=== PATIENT | male | born 1955 | race Caucasian/White ===

== ENCOUNTER 2016-06-23 22:24 | Emergency (ER) | payer BC, OTHER ==
[2016-06-23 22:32] VITALS: BP 108/67; BMI 23.3
--- NOTE | 2016-06-24 00:21 | DR.GENAD ---
HPI - PCP Primary Care Physician: HILLARY - Complaint/Symptoms Chief Complaint Doctors Comments: Agree with statement. Chief Complaint:: PT STATES" ON May I HAD THE FLU MACIEL BEEN ON SEVERAL ROUNDS OF MEDICATIONS. TODAY I HAD A SPELL WHERE I GOT REAL WEAK FEELING AND NAUSEAED I HAVE NOT THROW UP BUT I FEEL SICK. I WAS IN [place] April I STARTED GETTING SICK AFTER RETURNING " - Source History Provided: Patient - Mode of Arrival Mode of Arrival: Ambulatory - Timing Onset of Chief Complaint: 05/14/16 PMH - PMH Past Medical History: Yes Past Medical History: Dyslipidemia Past Surgical History: Yes Surgical History: Tonsillectomy - Family History History of Family Medical Conditions: Yes Family Medical History: Coronary Artery Disease - Social History Do you use any recreational Drugs:: No Lives With: Family Lives Where: Home - infectious screening In the last 2 months have you had wt loss of >10#?: NO Have you had fever, night sweats or hemotysis?: No Have you traveled outside the country in the last 6 months?: No Isolation: Standard ROS - Review of Systems Eyes: No Symptoms Reported ENTM: No Symptoms Reported Respiratoy: No Symptoms Reported Cardiovascular: No Symptoms Reported Gastrointestinal/Abdominal: No Symptoms Reported Genitourinary: No Symptoms Reported Neurological: No Symptoms Reported Musculoskeletal: No Symptoms Reported Integumentary: No Symptoms Reported Hematologic/Lymphatic: No Symptoms Reported Endocrine: No Symptoms Reported Psychiatric: No Symptoms Reported All Other Systems: Reviewed and Negative PE - Vital Signs Vitals: Temperature 102.1 F Pulse Rate 94 Respiratory Rate 20 Blood Pressure 108/67 O2 Sat by Pulse Oximetry 112 - General Limitations: No Limitations General Appearance: Alert, In No Apparent Distress - Head Head Exam: Normal Inspection, Atraumatic - Eyes Eye exam: Normal Appearance, PERRL, EOMI - ENT ENT Exam: Normal Exam External Ear Exam: Normal External Inspection TM/Canal Exam: Bilateral Normal Nose Exam: Normal Nose Exam Mouth Exam: Normal Inspection Throat Exam: Normal Inspection - Neck Neck Exam: Normal Inspection - Chest Chest Inspection: Normal Inspection - Respiratory Respiratory Exam: Normal Lung Sounds Bilat Respiratory Exam: Bilateral Clear to Auscultation - Cardiovascular Cardiovascular Exam: Regular Rate - Abdominal Exam Abdominal Exam: Normal Inspection, Normal Bowel Sounds Abdominal Tenderness: negative: RUQ, RLQ, LUQ, LLQ, Epigastrium, Suprapubic, Diffuse, Mild, Moderate, Severe, Other - Extremities Extremities Exam: Normal Inspection - Back Back Exam: Normal Inspection - Neurologic Neurological Exam: Alert, Oriented X3, CN II-XII Intact - Psychiatric Psychiatric Exam: Normal Affect, Normal Mood - Skin Skin Exam: Warm, Dry, Intact ROR - Labs Reviewed Laboratory Results Reviewed?: Yes Result Diagrams: 06/24/16 00:20 06/24/16 00:20 Laboratory: WBC 13.8 X10^3/uL (3.6-10.0) H 06/24/16 00:20 RBC 4.90 X10^6/uL (4.7-6.0) 06/24/16 00:20 Hgb 13.7 g/dL (13.5-18.0) 06/24/16 00:20 Hct 40.6 % (42.0-54.0) L 06/24/16 00:20 MCV 82.8 fL (80.0-100.0) 06/24/16 00:20 MCH 28.0 pg (27.0-34.0) 06/24/16 00:20 MCHC 33.7 g/dL (33.0-35.0) 06/24/16 00:20 RDW 14.8 % (11.6-16.5) 06/24/16 00:20 Plt Count 130 X10^3/uL (150.0-450.0) L 06/24/16 00:20 Plt Count Comment Adequate (ADEQUATE) 06/24/16 00:20 MPV 7.3 fL (7.4-11.0) L 06/24/16 00:20 Neut % 91.8 % (42.0-75.0) H 06/24/16 00:20 Lymph % 1.6 % (21.0-51.0) L 06/24/16 00:20 [place] % 6.2 % (0.0-13.0) 06/24/16 00:20 Eos % 0.0 % (0.9-2.9) L 06/24/16 00:20 Baso % 0.4 % (0.2-1.0) 06/24/16 00:20 Neut # 12.7 x10^3/uL (2.2-4.8) H 06/24/16 00:20 Lymph # 0.2 X10^3/uL (1.3-2.9) L 06/24/16 00:20 [place] # 0.9 x10^3/uL (0.3-0.8) H 06/24/16 00:20 Eos # 0.0 x10^3/uL (0.0-0.2) 06/24/16 00:20 Baso # 0.1 X10^3/uL (0.0-0.1) 06/24/16 00:20 Absolute Nucleated RBC 0.0 /100WBC 06/24/16 00:20 Total Counted 100 06/24/16 00:20 Neutrophils % (Manual) 82 % (39-76) H 06/24/16 00:20 Band Neutrophils % 10 % (0-10) 06/24/16 00:20 Lymphocytes % (Manual) 2 % (13-43) L 06/24/16 00:20 Monocytes % (Manual) 6 % (4-9) 06/24/16 00:20 Plt Morphology Comment Normal (NORMAL) 06/24/16 00:20 RBC Morphology Normal (NORMAL) 06/24/16 00:20 Sodium 138 mmol/L (136-145) 06/24/16 00:20 Corrected Sodium 138 mmol/L (136-145) 06/24/16 00:20 Potassium 3.0 mmol/L (3.5-5.1) L* 06/24/16 00:20 Chloride 103 mmol/L (98-107) 06/24/16 00:20 Carbon Dioxide 24.0 mmol/L (21-32) 06/24/16 00:20 BUN 18 mg/dL (7-18) 06/24/16 00:20 Creatinine 1.05 mg/dL (0.70-1.30) 06/24/16 00:20 Est GFR (MDRD) Af Amer > 60 (>60) 06/24/16 00:20 Est GFR (MDRD) Non-Af > 60 (>60) 06/24/16 00:20 Glucose 117 mg/dL (65-99) H 06/24/16 00:20 Calcium 8.5 mg/dL (8.5-10.1) 06/24/16 00:20 Corrected Calcium 9.3 mg/dL (8.5-10.1) 06/24/16 00:20 Total Bilirubin 1.20 mg/dL (0.2-1.0) H 06/24/16 00:20 AST 169 Units/L (15-37) H 06/24/16 00:20 ALT 139 Units/L (12-78) H 06/24/16 00:20 Alkaline Phosphatase 90 Units/L (46-116) 06/24/16 00:20 C-Reactive Protein 48.20 mg/L (0-3.0) H 06/24/16 00:20 Total Protein 6.3 g/dL (6.4-8.2) L 06/24/16 00:20 Albumin 3.0 g/dL (3.4-5.0) L 06/24/16 00:20 Globulin 3.3 g/dL (2.5-4.5) 06/24/16 00:20 Albumin/Globulin Ratio 0.9 Ratio (1.1-2.1) L 06/24/16 00:20 Specimen Type Clean catch urine 06/24/16 02:43 Urine Color Yellow (YELLOW) 06/24/16 02:43 Urine Appearance Clear (CLEAR) 06/24/16 02:43 Urine pH 6.0 (5.0 - 8.0) 06/24/16 02:43 Ur Specific [employer] 1.010 (1.000-1.030) 06/24/16 02:43 Urine Protein 1+ (NEGATIVE) 06/24/16 02:43 Urine Glucose (UA) Negative (NEGATIVE) 06/24/16 02:43 Urine Ketones Negative (NEGATIVE) 06/24/16 02:43 Urine Occult Blood 1+ (NEGATIVE) 06/24/16 02:43 Urine Nitrite Negative (NEGATIVE) 06/24/16 02:43 Urine Bilirubin Negative (NEGATIVE) 06/24/16 02:43 Urine Urobilinogen Normal (NORMAL) 06/24/16 02:43 Ur Leukocyte Esterase Negative (NEGATIVE) 06/24/16 02:43 Urine RBC 0-3 /HPF (NEGATIVE) 06/24/16 02:43 Urine WBC 0-3 /HPF (NEGATIVE) 06/24/16 02:43 Ur Squamous Epith Cells Rare /HPF (NEGATIVE) 06/24/16 02:43 Urine Bacteria Negative /HPF (NEGATIVE) 06/24/16 02:43 Ur Culture Indicated? No/not indicated 06/24/16 02:43 - XRAY XRAY Interpreted by: Radiologist (Ct Abd/pel: Parapelvic cyst seen on the right without hydroureteronephrosis. Cardiomegaly, spine degenerative change without destructive osseous lesion. Impression : No acute abnormality to explain patient symptom.) - Diagnosis Discharge Problem: Hypokalemia Fever Qualifiers: Fever type: unspecified Qualified Code(s): R50.9 - Fever, unspecified - Discharge Plan Condition: Stable - Follow ups/Referrals Follow ups/Referrals: NFD,None [Primary Care Provider] - 3 days - Instructions
[2016-06-24 00:42] LABS: BASOPHILS # (AUTO) 0.1 X10^3/uL (0.0-0.1); BASOPHILS % (AUTO) 0.4 % (0.2-1.0); HEMATOCRIT 40.6 % (42.0-54.0); HEMOGLOBIN 13.7 g/dL (13.5-18.0); LYMPHOCYTES # (AUTO) 0.2 X10^3/uL (1.3-2.9); LYMPHOCYTES % (AUTO) 1.6 % (21.0-51.0); MEAN CORPUSCULAR HGB CONC 33.7 g/dL (33.0-35.0); MEAN CORPUSCULAR VOLUME 82.8 fL (80.0-100.0); MEAN PLATELET VOLUME 7.3 fL (7.4-11.0); MONOCYTES # (AUTO) 0.9 x10^3/uL (0.3-0.8); MONOCYTES % (AUTO) 6.2 % (0.0-13.0); NEUTROPHILS # (AUTO) 12.7 x10^3/uL (2.2-4.8); NEUTROPHILS % (AUTO) 91.8 % (42.0-75.0); PLATELET COUNT 130 X10^3/uL (150.0-450.0); RED CELL DISTRIBUTION WIDTH 14.8 % (11.6-16.5); WHITE BLOOD COUNT 13.8 X10^3/uL (3.6-10.0)
[2016-06-24 00:51] LABS: BLOOD UREA NITROGEN 18 mg/dL (7-18); CALCIUM 8.5 mg/dL (8.5-10.1); CHLORIDE 103 mmol/L (98-107); COR NA(FOR HYPERGLY) 138 mmol/L (136-145); CREATININE 1.05 mg/dL (0.70-1.30); GLUCOSE 117 mg/dL (65-99); SODIUM 138 mmol/L (136-145); eGFR BLACK RACES > 60 (>60); eGFR NON BLACK RACES > 60 (>60)
[2016-06-24 00:56] LABS: ALANINE AMINOTRANSFERASE 139 Units/L (12-78); ALKALINE PHOSPHATASE 90 Units/L (46-116); ASPARTATE AMINO TRANSFERASE 169 Units/L (15-37); COR CA(FOR HYPOALB) 9.3 mg/dL (8.5-10.1); TOTAL PROTEIN 6.3 g/dL (6.4-8.2)
[2016-06-24 01:06] LABS: BAND NEUTROPHILS % 10 % (0-10); PLATELET MORPHOLOGY COMMENT NORMAL (NORMAL)
[2016-06-24] MEDS ORDERED: K-LYTE EFFERVESCENT PO ONE (01:17)
[2016-06-24] MEDS ORDERED: MICRO K EXTEN CAP 10 MEQ PO ONE ×2 (02:31→02:35)
[2016-06-24 02:54] LABS: BILIRUBIN,URINE NEGATIVE (NEGATIVE); BLOOD/HEMOGLOBIN,URINE 1+ (NEGATIVE); GLUCOSE, URINE NEGATIVE (NEGATIVE); KETONES,URINE NEGATIVE (NEGATIVE); LEUKOCYTE ESTERASE ,URINE NEGATIVE (NEGATIVE); NITRITES,URINE NEGATIVE (NEGATIVE); PROTEIN,URINE 1+ (NEGATIVE); UROBILINOGEN,URINE NORMAL (NORMAL)
--- NOTE | 2016-06-24 02:59 | RAD ---
Chest PA and lateral Indication: Flu. 6 stomach. Findings: There is no pneumothorax, effusion or consolidation. Heart size is within normal limits. Impression: No acute chest process. Reported By:
[2016-06-24 03:06] LABS: APPEARANCE,URINE CLEAR (CLEAR); BACTERIA,URINE NEGATIVE /HPF (NEGATIVE); COLOR,URINE YELLOW (YELLOW); RBC,URINE 0-3 /HPF (NEGATIVE); SQUAMOUS EPITHELIAL CELL,UR RARE /HPF (NEGATIVE)
[2016-06-24] MEDS ORDERED: NS 100 ML IV 100 ML IV ONE (03:45)
--- NOTE | 2016-06-24 04:10 | CT ---
CT abdomen and pelvis with contrast Indication: Abdominal pain. Technique: Helical images through the abdomen and pelvis after IV contrast. Coronal sagittal reforma ts provided. Findings: Limited images through lower chest shows hyperinflation and chronic lung changes. Cardiome qamar seen. Review of bone windows shows spine degenerative change without destructive osseous lesion. Abdomen: The liver, spleen, pancreas, adrenal glands, stomach and small bowel show no acute abnormal ity. Vasculature appears normal. Parapelvic cyst seen on the right without hydroureteronephrosis. Le ft kidney is normal. The appendix is normal. No acute colonic abnormality seen. Minimal scattered va scular plaque noted. Pelvis: Urinary bladder and rectum are normal. Prostate gland is enlarged. Impression: 1. No acute abnormality to explain the patient's pain. 2. Scattered vascular plaque, mild spine degenerative change, right parapelvic renal cysts and other incidental findings as above. Reported By:
== END 2016-06-24 04:47 | disposition home or self-care (01) ==
LOC: ER 22:24
DX: R50.9 Fever, unspecified (principal); E87.6 Hypokalemia
CPT/HCPCS: 36415; 71020; 74177; 80053; 81001; 85025; 86140; 87205; 99283; A4222